=== PATIENT | female | born 1995 | race American Indian/Alaskan Native ===

== ENCOUNTER 2021-06-20 03:31 | Emergency (ER) | payer OTHER ==
[2021-06-20 04:31] VITALS: BP 118/78
[2021-06-20 06:37] LABS: Bacteria,Urine 1+ /HPF (Negative); HCG Qualitative,Urine Negative (Negative); Mucus,Urine FEW /HPF
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
[2021-06-20 07:15] LABS: Amphetamine Screen,Urine Negative; Benzodiazepines Screen,Urine Negative; Cocaine Screen,Urine Negative; Methadone Screen,Urine Negative; Opiate Screen,Urine Negative
[2021-06-20 07:18] LABS: Bilirubin,Urine NEG (Negative); Blood,Urine NEG (Negative); Color,Urine Yellow (Yellow); Protein,Urine <15 mg/dL mg/dL (Negative)
[2021-06-20 07:48] LABS: Cannabinoid Screen,Urine Positive
== END 2021-06-20 06:55 | disposition left against medical advice (07) ==
LOC: ED 03:31
DX: T76.21XA Adult sexual abuse, suspected, initial encounter (principal); F17.200 Nicotine dependence, unspecified, uncomplicated; F12.90 Cannabis use, unspecified, uncomplicated; Z79.899 Other long term (current) drug therapy; Y92.89 Other specified places as the place of occurrence of the external cause
CPT/HCPCS: 80307; 81001; 81025; 99282